=== PATIENT | male | born 1950 | race Caucasian/White ===

== ENCOUNTER 2019-02-26 01:47 | Inpatient (IN) ==
[2019-02-26] MEDS ORDERED: ACETAMINOPHEN 325 MG TABLET PO PRN (04:44)
[2019-02-26] MEDS ORDERED: ONDANSETRON 4 MG/2 ML VIAL IV PRN (04:44)
[2019-02-26 06:22] LABS: Albumin 3.3 G/DL (3.4-5.0); Osmolality,Calculated 277.8 MOS/KG (273-304)
[2019-02-26] MEDS ORDERED: ENOXAPARIN 40 MG/0.4 ML SYRINGE SUBCUT SCH (06:30)
[2019-02-26] MEDS ORDERED: DEXTROSE 50% 25 GM/50 ML VIAL IV PRN (08:08)
[2019-02-26] MEDS ORDERED: GLUCAGON 1 MG VIAL IM PRN (08:08)
[2019-02-26 08:11] LABS: Basophils # 0.1 10*3/uL (0.0-0.2); Basophils % 0.7 % (0.0-0.8); Eosinophils # 0.1 10*3/uL (0.0-0.87); Eosinophils % 0.9 % (0.00-10.9); Hematocrit 40.9 VOL% (42.0-52.0); Hemoglobin 13.2 GM/DL (14.0-18.0); Immature Granulocytes % 0.3 %; Immature Granulocytes Absolute 0.02 #; Lymphocytes # 2.2 10*3/uL (1.4-4.0); Lymphocytes % 28.4 % (21.2-54.2); Mean Corpuscular HGB Conc 32.3 GM/DL (32-36); Mean Corpuscular Volume 95.8 FL (87-102); Mean Platelet Volume 10.6 FL (9.6-12.0); Monocytes % 12.9 % (1.7-12.7); Neutrophils % 56.8 % (38.7-73.9); Platelet Count 194 T/CUMM (130-400); Red Blood Count 4.27 MC/CUMM (3.8-5.5); Red Cell Distribution Width 13.3 % (9.3-17.3); White Blood Count 7.6 T/CUMM (4-12)
[2019-02-26 08:36] LABS: Calcium 9.2 MG/DL (8.5-10.1); Osmolality,Calculated 274.1 MOS/KG (273-304)
[2019-02-26 08:43] LABS: Troponin I < 0.015 NG/ML (0.00-0.045)
[2019-02-26] MEDS ORDERED: MAGNESIUM SULF RIDER 4 GM in PREMIX 1 EACH IV ONE (09:21)
[2019-02-26] MEDS: PANTOPRAZOLE 40 MG TABLET PO SCH (10:35)
[2019-02-26] MEDS ORDERED: tiZANidine 4 MG TABLET PO PRN (11:28)
[2019-02-26] MEDS ORDERED: METHOCARBAMOL 500 MG TABLET PO PRN (11:28)
[2019-02-26] MEDS ORDERED: ENOXAPARIN 60 MG/0.6 ML SYRINGE SUBCUT ONE (11:29)
[2019-02-26] MEDS ORDERED: ASPIRIN 325 MG TABLET PO SCH (11:30)
[2019-02-26] MEDS ORDERED: NON-FORMULARY MEDICATION (Omeprazole 20 MG) PO SCH (11:30)
[2019-02-26] MEDS ORDERED: NITROGLYCERIN SL 0.4 MG TABLET SL PRN (11:30)
[2019-02-26] MEDS ORDERED: MAGNESIUM SULF RIDER 2 GM in PREMIX 1 EACH IV PRN (11:33)
[2019-02-26] MEDS ORDERED: MAGNESIUM SULF RIDER 4 GM in PREMIX 1 EACH IV PRN (11:33)
[2019-02-26 12:18] LABS: Alanine Aminotransferase 24 U/L (16-61); Albumin 3.5 G/DL (3.4-5.0); Alkaline Phosphatase 73 U/L (45-117); Aspartate Amino Transferase 17 U/L (0-37); Bilirubin,Direct < 0.100 MG/DL (0.0-0.20); Bilirubin,Indirect 0.3 MG/DL (0.0-1.0); Bilirubin,Total < 0.39 MG/DL (0.2-1.0); Total Protein 6.8 G/DL (6.4-8.3)
[2019-02-26] MEDS: FERROUS SULFATE 325 MG TABLET PO SCH (12:34)
[2019-02-26] MEDS: METOPROLOL TARTRATE 25 MG TABLET PO SCH ×2 (12:35→21:25)
[2019-02-26] MEDS: LISINOPRIL 10 MG TABLET PO SCH (12:35)
[2019-02-26] MEDS: PARoxetine 20 MG TABLET PO SCH (12:35)
[2019-02-26] MEDS: ALBUTEROL/IPRATROPIUM 3 ML NEB RESP TX SCH (19:25)
[2019-02-26] MEDS ORDERED: AMITRIPTYLINE 100 MG TABLET PO SCH (21:00)
[2019-02-26] MEDS: ENOXAPARIN 100 MG/ML SYRINGE SUBCUT SCH (21:25)
[2019-02-27] MEDS: ALBUTEROL/IPRATROPIUM 3 ML NEB RESP TX SCH ×4 (00:10→19:10)
[2019-02-27 04:20] LABS: Basophils % 0.6 % (0.0-0.8); Eosinophils # 0.1 10*3/uL (0.0-0.87); Eosinophils % 1.2 % (0.00-10.9); Hematocrit 38.9 VOL% (42.0-52.0); Hemoglobin 12.6 GM/DL (14.0-18.0); Immature Granulocytes % 0.4 %; Immature Granulocytes Absolute 0.02 #; Lymphocytes # 1.8 10*3/uL (1.4-4.0); Lymphocytes % 34.8 % (21.2-54.2); Mean Corpuscular HGB Conc 32.4 GM/DL (32-36); Mean Corpuscular Volume 94.2 FL (87-102); Mean Platelet Volume 10.9 FL (9.6-12.0); Monocytes % 13.2 % (1.7-12.7); Neutrophils % 49.8 % (38.7-73.9); Platelet Count 188 T/CUMM (130-400); Red Blood Count 4.13 MC/CUMM (3.8-5.5); Red Cell Distribution Width 13.2 % (9.3-17.3); White Blood Count 5.2 T/CUMM (4-12)
[2019-02-27 04:45] LABS: Calcium 9.2 MG/DL (8.5-10.1); Osmolality,Calculated 275.8 MOS/KG (273-304)
[2019-02-27 06:09] LABS: Risk Ratio 4.88; VLDL CHOLESTEROL 30.6 MG/DL
[2019-02-27] MEDS: FERROUS SULFATE 325 MG TABLET PO SCH (08:28)
[2019-02-27] MEDS: METOPROLOL TARTRATE 25 MG TABLET PO SCH (09:33)
[2019-02-27] MEDS: LISINOPRIL 10 MG TABLET PO SCH (09:33)
[2019-02-27] MEDS: predniSONE 20 MG TABLET PO SCH (09:33)
[2019-02-27] MEDS: ASPIRIN EC 81 MG TABLET PO SCH (09:33)
[2019-02-27] MEDS: CLOPIDOGREL 75 MG TABLET PO SCH (09:35)
[2019-02-27] MEDS ORDERED: diphenhydrAMINE CAP 50 MG CAPSULE ONE (09:39)
[2019-02-27] MEDS ORDERED: DIAZEPAM 5 MG TABLET ONE (09:39)
[2019-02-27] MEDS ORDERED: DIAZEPAM 5 MG TABLET PO ONE (09:41)
[2019-02-27] MEDS ORDERED: diphenhydrAMINE CAP 25 MG CAPSULE PO ONE (09:41)
[2019-02-27] MEDS: PANTOPRAZOLE 40 MG TABLET PO SCH (10:13)
[2019-02-27] MEDS ORDERED: fentaNYL 100 MCG/2 ML VIAL ONE (10:39)
[2019-02-27] MEDS ORDERED: HEPARIN/NACL 0.9% 2 UNITS/ML 1,000 ML IV ONE (10:39)
[2019-02-27] MEDS ORDERED: NITROGLYCERIN DRIP 50 MG/250 ML BOTTLE IV ONE (10:39)
[2019-02-27] MEDS ORDERED: MIDAZOLAM 2 MG/2 ML VIAL ONE (10:39)
[2019-02-27] MEDS ORDERED: LIDOCAINE 1% 20 ML VIAL ONE (10:39)
[2019-02-27] MEDS ORDERED: VERAPAMIL 5 MG/2 ML VIAL ONE (10:40)
[2019-02-27] MEDS ORDERED: PROPOFOL 200 MG/20 ML VIAL IV ONE (10:56)
[2019-02-27] MEDS ORDERED: LIDOCAINE 2% 5 ML VIAL ONE (10:56)
[2019-02-27] MEDS ORDERED: ENOXAPARIN 30 MG/0.3 ML SYRINGE ONE (11:21)
[2019-02-27] MEDS ORDERED: SODIUM CHLORIDE 0.9% 1,000 ML IV SCH (12:00)
[2019-02-27 12:24] LABS: PT Patient Result 10.5 SECS (9.6-12.2)
[2019-02-27] MEDS: SOTALOL 80 MG TABLET PO SCH ×2 (13:40→21:53)
[2019-02-27] MEDS: PARoxetine 20 MG TABLET PO SCH (13:41)
[2019-02-27] MEDS ORDERED: WARFARIN 5 MG TABLET PO SCH (18:00)
[2019-02-28] MEDS: ALBUTEROL/IPRATROPIUM 3 ML NEB RESP TX SCH ×3 (00:26→14:27)
[2019-02-28 05:18] LABS: Basophils % 0.4 % (0.0-0.8); Eosinophils # 0.1 10*3/uL (0.0-0.87); Eosinophils % 1.5 % (0.00-10.9); Hematocrit 36.3 VOL% (42.0-52.0); Hemoglobin 11.6 GM/DL (14.0-18.0); Immature Granulocytes % 0.4 %; Immature Granulocytes Absolute 0.03 #; Lymphocytes # 2.4 10*3/uL (1.4-4.0); Lymphocytes % 31.1 % (21.2-54.2); Mean Corpuscular Volume 95.8 FL (87-102); Mean Platelet Volume 10.3 FL (9.6-12.0); Monocytes % 12.9 % (1.7-12.7); Neutrophils % 53.7 % (38.7-73.9); Platelet Count 182 T/CUMM (130-400); Red Blood Count 3.79 MC/CUMM (3.8-5.5); White Blood Count 7.8 T/CUMM (4-12)
[2019-02-28 05:23] LABS: PT Patient Result 10.5 SECS (9.6-12.2)
[2019-02-28 05:40] LABS: Calcium 9.1 MG/DL (8.5-10.1)
[2019-02-28 05:41] LABS: Hypochromasia 1+; Platelet Estimate Adequate
[2019-02-28] MEDS: LISINOPRIL 10 MG TABLET PO SCH (08:56)
[2019-02-28] MEDS: SOTALOL 80 MG TABLET PO SCH (08:56)
[2019-02-28] MEDS: ASPIRIN EC 81 MG TABLET PO SCH (08:56)
[2019-02-28] MEDS: CLOPIDOGREL 75 MG TABLET PO SCH (08:57)
[2019-02-28] MEDS: predniSONE 20 MG TABLET PO SCH (08:57)
[2019-02-28] MEDS: FERROUS SULFATE 325 MG TABLET PO SCH (08:57)
[2019-02-28] MEDS: PANTOPRAZOLE 40 MG TABLET PO SCH (08:57)
[2019-02-28] MEDS: ENOXAPARIN 100 MG/ML SYRINGE SUBCUT SCH (09:03)
[2019-02-28] MEDS: PARoxetine 20 MG TABLET PO SCH (12:18)
[2019-02-28 12:25] VITALS: BP 132/70
== END 2019-02-28 14:49 | disposition home or self-care (01) | DRG 287 ==
LOC: N.TELES → OBSVTOIN 03:11 → INTOOBSV 03:11
PROVIDERS: ADMIT Internal Medicine; ATTEND Internal Medicine
PROC: CLCCHCL (ICD-10-PCS; 2019-02-27 11:15)